=== PATIENT | male | born 1970 | race Caucasian/White ===

== ENCOUNTER 2016-05-20 07:33 | Emergency (ER) | payer OTHER ==
[2016-05-20] MEDS ORDERED: KETOROLAC TROMETHAMINE 60 MG/2 ML SDV IM ONE (08:29)
--- NOTE | 2016-05-20 08:31 | ER Document Report ---
HPI - HPI Patient complains to provider of: chronic low back pain Onset: Other - years worse this past 3 months and yesterday Onset/Duration: Persistent Quality of pain: Achy Severity: Severe Pain Level: 5 Context: presents to the emergency department with reports of chronic back pain for years and years. He denies recent trauma. He denies fever vomiting diarrhea. He denies urinary or bowel incontinence or retention. Denies numbness and tingling. Reports last bowel movement yesterday was in normal limits. Patient reports he's been hurting so bad he has been unable to sleep for the last couple days. Patient has not taken any type of pain medication such as ibuprofen or Tylenol. Associated Symptoms: None Exacerbated by: Denies Relieved by: Denies Similar symptoms previously: Yes Recently seen / treated by doctor: No - DERM Skin Color: Normal Past Medical History - General Information source: Patient - Social History Smoking Status: Current Every Day Smoker Chew tobacco use (# tins/day): No Frequency of alcohol use: None Drug Abuse: None Lives with: Alone Family History: None Patient has suicidal ideation: No Patient has homicidal ideation: No - Medical History Medical History: Negative Renal/ Medical History: Denies: Hx Peritoneal Dialysis Surgical Hx: Negative Vertical Provider Document - CONSTITUTIONAL Agree With Documented VS: Yes Exam Limitations: No Limitations General Appearance: WD/WN, No Apparent Distress - INFECTION CONTROL TRAVEL OUTSIDE OF THE [place] IN LAST 30 DAYS: No - HEENT HEENT: Atraumatic, Normocephalic - NECK Neck: Normal Inspection, Supple. negative: Lymphadenopathy-Left, Lymphadenopathy-Right - RESPIRATORY Respiratory: Breath Sounds Normal, No Respiratory Distress O2 Sat by Pulse Oximetry: 100 - CARDIOVASCULAR Cardiovascular: Regular Rate - GI/ABDOMEN Gastrointestinal: Abdomen Soft, Abdomen Non-Tender - BACK Back: Normal Inspection - No obvious deformity. No step-off no warmth erythema or swelling. Patient has good distal movement and sensation. - MUSCULOSKELETAL/EXTREMETIES Musculoskeletal/Extremeties: LORRI BERNSTEIN - NEURO Level of Consciousness: Awake, Alert, Appropriate Motor/Sensory: No Motor Deficit - DERM Integumentary: Warm, Dry Adult Front & Back Diagram: 1 - Complains of paraspinal tenderness to low back. Course - Re-evaluation Re-evalutation: 05/20/16 Patient was instructed per ED hospital policy we do not treat chronic pain. He was offered Toradol injection and accepted. He was also encouraged to follow up with his primary care provider for pain management. He verbalized understanding to all instructions but he did not seem happy. He requested a x- ray or CT scan of his back. When I asked him why he reports because he wanted to take the reports to his doctor. Patient reports he does not have Dr. The patient presents with low back pain without signs of spinal cord compression , cauda equine syndrome, infection, aneurysm, or other serious etiology. The patient is neurologically intact. The patient has good distal movement and sensation, denies urinary or bowel incontinence/retention. Given the extremely low risk of these diagnosis, further testing and evaluation for these possibilities does not appear to be indicated at this time. The patient has been instructed to return if the symptoms worsen or change in anyway. - Vital Signs Vital signs: Temp Pulse Resp BP Pulse Ox 98.3 F 108 H 16 117/80 100 05/20/16 07:41 05/20/16 07:41 05/20/16 07:41 05/20/16 07:41 05/20/16 07:41 Discharge - Discharge Clinical Impression: Chronic back pain Qualifiers: Back pain location: low back pain Back pain laterality: bilateral Sciatica presence: without sciatica Qualified Code(s): M54.5 - Low back pain Condition: Stable Disposition: HOME, SELF-CARE Instructions: Ice Packs ([facility]), Warm Packs ([facility]), Toradol Injection ([facility]), Family Physicians / Practices, Use of [id number]-[id number] Ibuprofen ([facility]) Additional Instructions: *You have been evaluated for chronic back pain *Take ibuprofen as indicated for pain *Follow up with a primary care provider within one week for recheck *Return to ED for worsening condition, changes, needs
[2016-05-20 08:51] VITALS: BP 143/93
== END 2016-05-20 08:51 | disposition home or self-care (01) ==
LOC: ER 07:33
DX: M54.5 Low back pain (principal); G89.29 Other chronic pain; F17.210 Nicotine dependence, cigarettes, uncomplicated
CPT/HCPCS: 99283; 96372; J1885